=== PATIENT | female | born 1970 | race American Indian/Alaskan Native ===

== ENCOUNTER 2019-03-31 09:48 | Emergency (ER) | payer SELFPAY ==
[2019-03-31 10:02] VITALS: BP 149/101
[2019-03-31] MEDS ORDERED: KETOROLAC 30 MG/1 ML INJ IM ONE (11:30)
--- NOTE | 2019-03-31 12:01 | Emergency Department Report ---
ED Abdominal Pain HPI - General Chief Complaint: Urogenital-Female Stated Complaint: KIDNEY INFECTION Time Seen by Provider: 03/31/19 11:18 Source: patient Mode of arrival: Ambulatory Limitations: No Limitations - History of Present Illness Initial Comments: urinary frequency since last night then started having R flank/low back pain no fevers, n/v prior hysterectomy Complaint: flank pain -: Gradual, days(s) (1) Location: R flank Radiation: none Migration to: no migration Severity scale (0 -10): 5 Quality: aching Consistency: constant Improves With: nothing Worsens With: nothing Associated Symptoms: dysuria. denies: nausea, vomiting, diarrhea - Related Data Previous Rx's Medication Instructions Recorded Last Taken Type Naproxen [Naprosyn] 500 mg PO BID #20 tablet 03/31/19 Unknown Rx cephALEXin [Keflex] 500 mg PO Q12HR #14 cap 03/31/19 Unknown Rx Allergies Allergy/AdvReac Type Severity Reaction Status Date / Time No Known Allergies Allergy Unverified 03/31/19 09:50 ED Review of Systems ROS: Stated complaint: KIDNEY INFECTION Other details as noted in HPI Comment: All other systems reviewed and negative Genitourinary: as per HPI ED Past Medical Hx - Past Medical History Previous Medical History?: No - Surgical History Past Surgical History?: Yes Additional Surgical History: Hysterectomy - Social History Smoking Status: Never Smoker Substance Use Type: None - Medications Home Medications: Home Medications Medication Instructions Recorded Confirmed Last Taken Type Naproxen [Naprosyn] 500 mg PO BID #20 tablet 03/31/19 Unknown Rx cephALEXin [Keflex] 500 mg PO Q12HR #14 cap 03/31/19 Unknown Rx ED Physical Exam - General Limitations: No Limitations General appearance: alert, in no apparent distress - Head Head exam: Present: atraumatic, normocephalic - Eye Eye exam: Present: normal appearance - ENT ENT exam: Present: mucous membranes moist - Neck Neck exam: Present: normal inspection - Respiratory Respiratory exam: Present: normal lung sounds bilaterally. Absent: respiratory distress - Cardiovascular Cardiovascular Exam: Present: regular rate, normal rhythm. Absent: systolic murmur, diastolic murmur, rubs, gallop - GI/Abdominal GI/Abdominal exam: Present: soft, tenderness (R flank), normal bowel sounds. Absent: guarding, rebound - Extremities Exam Extremities exam: Present: normal inspection - Back Exam Back exam: Present: normal inspection, CVA tenderness (R). Absent: CVA tenderness (L) - Neurological Exam Neurological exam: Present: alert, oriented X3 - Psychiatric Psychiatric exam: Present: normal affect, normal mood - Skin Skin exam: Present: warm, dry, intact, normal color. Absent: rash ED Course Vital Signs 03/31/19 03/31/19 10:01 12:39 Temperature 97.9 F Pulse Rate 74 Respiratory 16 18 Rate Blood Pressure 149/101 O2 Sat by Pulse 100 Oximetry ED Medical Decision Making - Lab Data Result diagrams: 03/31/19 11:53 03/31/19 11:53 - Radiology Data Radiology results: report reviewed neg CT stone - Medical Decision Making flank pain and urinary frequency noted to use restroom multiple times here UA with 4+ bacteria but no leuks/nitrates will culture CT neg for stone - Differential Diagnosis stone, uti, muscle Critical care attestation.: If time is entered above; I have spent that time in minutes in the direct care of this critically ill patient, excluding procedure time. ED Disposition Clinical Impression: Flank pain, Dysuria Disposition: DC-01 TO HOME OR SELFCARE Is pt being admited?: No Condition: Good Instructions: Dysuria (ED) Prescriptions: cephALEXin [Keflex] 500 mg PO Q12HR #14 cap Naproxen [Naprosyn] 500 mg PO BID #20 tablet Referrals: FEDE QUACH MD [Primary Care Provider] - 3-5 Days SALVADOR CONNOLLY MD [Referring] - 3-5 Days Time of Disposition: 14:17
[2019-03-31 12:03] LABS: Bacteria,Urine 4+ /HPF (Negative); Bilirubin,Urine NEG (Negative); Blood,Urine NEG (Negative); Color,Urine Straw (Yellow); Protein,Urine <15 mg/dL mg/dL (Negative); Urobilinogen,Urine < 2.0 mg/dL (<2.0)
[2019-03-31 13:23] LABS: BUN/Creatinine Ratio 15; Blood Urea Nitrogen 9 mg/dL (7-17); Calcium 10.2 mg/dL (8.4-10.2); Hemolysis Index 16
[2019-03-31 13:26] LABS: Basophils % (Auto) 0.3 % (0.0-1.8); Hematocrit 38.8 % (30.3-42.9); Hemoglobin 13.7 gm/dl (10.1-14.3); Lymphocytes # (Auto) 1.6 K/mm3 (1.2-5.4); Mean Corpuscular HGB Conc 35 % (30-34); Mean Corpuscular Volume 84 fl (79-97); Monocytes # (Auto) 0.5 K/mm3 (0.0-0.8); Monocytes % (Auto) 7.4 % (0.0-7.3); Platelet Count 234 K/mm3 (140-440); Red Blood Count 4.63 M/mm3 (3.65-5.03); Red Cell Distribution Width 13.6 % (13.2-15.2)
--- NOTE | 2019-03-31 14:04 | Cat Scan Report ---
CT ABDOMEN AND PELVIS WITHOUT CONTRAST HISTORY: Acute right flank pain. COMPARISON: None. TECHNIQUE: CT images of the abdomen and pelvis were obtained without administration of intravenous co ntrast. All CT scans at this location are performed using CT dose reduction for ALARA by means of au tomated exposure control. FINDINGS: Lungs/bones: Lung bases are clear. There are degenerative changes within the spine and pelvis with n o acute osseous abnormality. Abdomen/pelvis: There are several pelvic phleboliths but no convincing radiopaque urinary stone dise ase is identified. There is no renal mass, cyst, or hydronephrosis. The liver, gallbladder, spleen, pancreas, adrenals, and proximal GI tract appear unremarkable for non contrast technique. Urinary bladder is unremarkable. The uterus is surgically absent. The ovaries are difficult to visual ize. There is trace pelvic free fluid. No acute colonic abnormality identified. The appendix is thu l. Terminal ileum is also unremarkable. IMPRESSION: 1. No acute abnormality on this limited noncontrast examination. 2. Incidental findings as above. Signer Name: Landry Viera MD Signed: 03/31/2019 2:00 PM Workstation Name: [id number]
== END 2019-03-31 15:20 | disposition home or self-care (01) ==
LOC: ED 09:48
DX: R10.9 Unspecified abdominal pain (principal); R30.0 Dysuria; M54.5 Low back pain
CPT/HCPCS: 36415; 74176; 80048; 81001; 85025; 87086; 96372; 99284; J1885